=== PATIENT | male | born 1950 | race Caucasian/White ===

== ENCOUNTER 2025-01-04 12:05 | Inpatient (IN) | payer MEDICARE, BC ==
[~2025-01-04] VITALS: Ht 188 cm; Wt 119.8 kg
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
[2025-01-04 14:02] LABS: BASOPHILS % (AUTO) 0.5 % (0-1); EOSINOPHILS # (AUTO) 0.2 X10'3 (0-0.9); EOSINOPHILS % (AUTO) 2.5 % (0-6); HEMATOCRIT 44.7 % (42.0-52.0); LYMPHOCYTES # (AUTO) 1.2 X10'3 (1.1-4.8); LYMPHOCYTES % (AUTO) 18.8 % (21-51); MEAN CORPUSCULAR HGB CONC 33.5 g/dL (33.0-36.5); MEAN CORPUSCULAR VOLUME 86.5 FL (78-98); MEAN PLATELET VOLUME 8.8 FL (7.4-10.4); MONOCYTES # (AUTO) 0.5 X10'3 (0-0.9); MONOCYTES % (AUTO) 7.2 % (2-12); NEUTROPHILS # (AUTO) 4.6 X10'3 (1.8-7.7); PLATELET COUNT 184 X10'3 (140-440); RED BLOOD COUNT 5.17 X10'6 (4.70-6.10); RED CELL DISTRIBUTION WIDTH 14.9 % (11.5-14.5); WHITE BLOOD COUNT 6.5 X10'3 (4.5-11.0)
[2025-01-04] MEDS: normal saline 1000ml 1,000 ML IV ONE (14:15)
[2025-01-04 14:16] LABS: ALANINE AMINOTRANSFERASE 18 U/L (12-78); ALBUMIN 3.5 G/DL (3.4-5.0); ALBUMIN/GLOBULIN RATIO 0.9 (1.1-1.5); ALKALINE PHOSPHATASE 69 IU/L (46-116); ANION GAP 9 (8-16); ASPARTATE AMINO TRANSFERASE 19 U/L (10-37); BILIRUBIN,TOTAL 0.5 MG/DL (0.1-1.0); BLOOD UREA NITROGEN 18 MG/DL (7-18); BUN/CREATININE RATIO 16.4 (10.0-20.0); CALCIUM 8.8 MG/DL (8.5-10.1); CHLORIDE 103 MMOL/L (99-107); GLUCOSE 110 MG/DL (70-104); POTASSIUM 4.4 MMOL/L (3.5-5.1); SODIUM 139 MMOL/L (135-145); TOTAL CARBON DIOXIDE 27.4 MMOL/L (24-32); TOTAL PROTEIN 7.4 G/DL (6.4-8.2); eCRCL 65 ML/MIN; eGFR 65 ML/MIN
[2025-01-04] MEDS: ketorolac trometh 15mg/ml vial 15 MG/ML ML IV ONE (15:02)
[2025-01-04 15:35] LABS: BILIRUBIN,URINE NEGATIVE (Neg); CLARITY,URINE CLEAR (Clear); COLOR,URINE YELLOW (Yellow); GLUCOSE, URINE NEGATIVE (Neg); KETONES,URINE 15 mg/dl (Neg); LEUKOCYTE ESTERASE ,URINE NEGATIVE (Neg); NITRITES, URINE NEGATIVE (Neg); OCCULT BLOOD,URINE NEGATIVE (Neg); PH,URINE 6.5 (4.8-8.0); PROTEIN,URINE NEGATIVE (Neg); UROBILINOGEN,URINE 0.2 E.U/dL (0.2-1.0)
[2025-01-04 15:38] LABS: UA COLLECTION TYPE STRAIGHT CATH
[2025-01-04] MEDS: ondansetron/PF 4mg/2ml inj IV ONE (16:18)
[2025-01-04] MEDS: HYDROmorphone 1 mg/ml syringe IV ONE (16:19)
--- NOTE | 2025-01-04 17:27 | RADIOLOGY REPORT ---
EXAM: CT CT LUMBAR SPINE INDICATION: Pain, s/p trauma COMPARISON: None TECHNIQUE: Multiple axial CT images of the lumbar spine were obtained using bone algorithm. Axial an d coronal reformatting was done. Bone and soft tissue windows were reviewed. Radiation Dose Information: CT Dose: CTDI volume is 34.79 mGy. Dose-length product is 1187.42 mGy*cm FINDINGS: 5 [id number] lumbar-type vertebrae. Mild levoconvex curvature of the lumbar spine. Postsurgical changes of anterior spinal fusion of L3 L4 through L5-S1. Left lateral spinal fusion L2 and L3. Poste rior spinal fusion of L2 through S1 with no screws within the S4 vertebral body. Intervertebral disc spacer from L2-L3 to L5-S1. Fusion of the vertebral bodies of L1 and L2. Moderate to severe degenera tive changes of the lower thoracic spine. Limited evaluation of the spinal canal and neural foramina due to artifact spinal fixation hardware. Artifact from hardware limits evaluation of the lumbar spine for fractures. Diffuse demineralization is noted. Partially imaged 8 mm sclerotic focus of the left posterior vertebral body of T9. Addition al 6 mm Sclerotic foci are noted over The left pelvic bone. Blastic lesions within the differential. Bibasilar atelectasis. IMPRESSION: Postsurgical changes of the lumbar spine from L2-S1 as detailed above with fusion of L1 and L2. Artif act from hardware limits evaluation of the adjacent structures with no grossly displaced fractures no jose a.
[2025-01-04] MEDS ORDERED: potassium Cl 20 mEq SR tablet PO PRN ×2 (17:30)
[2025-01-04] MEDS ORDERED: acetaminophen 325mg tablet PO PRN ×2 (17:30)
[2025-01-04] MEDS ORDERED: HYDROcodone/acetaminophen 5mg/325mg tablet PO PRN (17:30)
[2025-01-04] MEDS ORDERED: ondansetron/PF 4mg/2ml inj IV PRN (17:30)
[2025-01-04] MEDS ORDERED: HYDROcodone/acetaminophen 10/325mg tab PO PRN (17:30)
[2025-01-04] MEDS ORDERED: magnesium sulf-water 4G/100mL 100 ML IV PRN (17:30)
[2025-01-04] MEDS ORDERED: magnesium sulf-water 2g/50mL 50 ML IV PRN (17:30)
[2025-01-04] MEDS ORDERED: magnesium Cl slow-release 64mg tablet PO PRN (17:30)
[2025-01-04] MEDS ORDERED: morphine 2 MG/ML inj. syringe IV PRN ×2 (17:30)
[2025-01-04] MEDS ORDERED: potassium Cl 40MEQ/1/2NS 520ml 520 ML IV PRN (17:30)
[2025-01-04] MEDS ORDERED: iohexol 300mg/ml 100ml inj. ONE (18:00)
[2025-01-04] MEDS ORDERED: HYDROmorphone inj. 0.5 MG/0.5 ML DISP.SYRIN IV PRN (18:15)
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
--- NOTE | 2025-01-04 18:41 | RADIOLOGY REPORT ---
Indication: Bilateral shoulder pain Technique: 2 views right shoulder Comparison: None FINDINGS/IMPRESSION: Cortical irregularity of the right humeral head / neck junction. Correlate with point tenderness to exclude fracture Moderate right AC joint arthrosis. Moderate to severe right glenohumeral joint arthr osis. Narrowing of the subacromial interval measuring 5 mm consistent with impingement. Pulmonary patchy airspace opacities and vasculature congestion.
--- NOTE | 2025-01-04 18:41 | RADIOLOGY REPORT ---
Indication: BILAT SHOULDER PAIN Technique: 2 views of the left shoulder Comparison: None FINDINGS/IMPRESSION: No radiographic evidence for acute fracture or dislocation. There are moderate degenerative changes of the left glenohumeral joint. Moderate left AC joint arthrosis. Pulmonary vascular congestion/ patchy pulmonary airspace opacities bilaterally.
--- NOTE | 2025-01-04 19:30 | RADIOLOGY REPORT ---
CT CT HEAD INDICATION: weakness, intractable pain COMPARISON: None TECHNIQUE: CT of the head without intravenous contrast. RADIATION DOSE: CTDIvol: 68 mGy, DLP: 1410 mGy*cm FINDINGS: There is mild streak artifact. There is no evidence of acute intracranial hemorrhage, extra-axial collection, mass effect, midline s hift, herniation or hydrocephalus. The ventricles, sulci and cisterns are commensurate in size with a mild degree of cerebral volume los s. The liao-white differentiation is intact. The visualized paranasal sinuses and mastoid air cells are clear. The surrounding soft tissues and osseous structures are unremarkable. Small bilateral tonsilliths. IMPRESSION: No evidence of acute intracranial abnormalities.
--- NOTE | 2025-01-04 19:39 | RADIOLOGY REPORT ---
EXAM: CT CT CERVICAL SPINE HISTORY: Neck pain COMPARISON: None CTDIvol 27.5 mGy, DLP 509 mGy*cm. TECHNIQUE: Multiple axial CT images of the spine were obtained using bone algorithm. Axial and coron al reformatting was done. Bone and soft tissue windows were reviewed. FINDINGS: Trace retrolisthesis C3/C4. Vertebral body heights are maintained. No evidence of acute fracture. Moderate multilevel degenerative disc changes from C3 through T1. Multilevel facet and uncovertebral arthropathy. Mild multilevel spinal canal narrowing which is greatest at C3-C4 secondary to disc osteophyte comple x. Moderate to severe bilateral neural foraminal narrowing at C3-C4 and C4-C5. Mild left and moderate ri ght neural foraminal narrowing at C5-C6. Paravertebral soft tissues are grossly unremarkable. Small bilateral tonsilliths. Thyroid is unremark able IMPRESSION: 1. No evidence of acute abnormalities in the cervical spine. 2. Moderate multilevel degenerative disc changes. Mild spinal canal narrowing at C3-C4. 3. Moderate to severe bilateral neural foraminal narrowing at C3-C4 and C4-C5.
--- NOTE | 2025-01-04 19:53 | RADIOLOGY REPORT ---
EXAM: CT CT THORACIC SPINE HISTORY: Thoracic spine pain COMPARISON: None CTDIvol 28 mGy, DLP 1106 mGy*cm. TECHNIQUE: Multiple axial CT images of the spine were obtained using bone algorithm. Axial and coron al reformatting was done. Bone and soft tissue windows were reviewed. FINDINGS: There are small rib lets at L1. Thoracic dextrocurvature. Mild exaggeration of the thoracic kyphosis. Minimal anterolisthesis T12/L1. Vertebral body heights are maintained. No evidence of acute fracture. Small bone islands in the T11 v ertebral body and the right 9th posterior rib. Moderate multilevel degenerative disc changes throughout the thoracic spine. Minimal disc osteophyte complex at T10-T11 and T11-T12. No evidence of high-grade osseous spinal alex nosis. Moderate bilateral neural foraminal narrowing at T10-T11, and T11-T12. Otherwise there is mild multilevel neural foraminal narrowing. Paravertebral musculature is unremarkable. Mild coronary artery calcification. Bibasilar dependent at electasis. A couple of subcentimeter calcified lung nodules are seen which are commonly due to old g ranulomatous disease. IMPRESSION: 1. No evidence of acute abnormalities in the thoracic spine. 2. Moderate multilevel degenerative disc changes throughout the thoracic spine. No evidence of high-g rade osseous spinal stenosis. 3. Moderate neural foraminal narrowing bilaterally T10-T11 and T11-T12.
[2025-01-04] MEDS: normal saline 1000ml 1,000 ML IV SCH (20:05)
[2025-01-04] MEDS: heparin, porcine 5000 units/ml vial SQ SCH (20:06)
[2025-01-04] MEDS: HYDROmorphone 1 mg/ml syringe IV PRN (20:08)
--- NOTE | 2025-01-04 20:12 | RADIOLOGY REPORT ---
Exam: CT CT CHEST ABDOMEN PELVIS W/ IV CONTRAST History: weakness, intractable pain Comparison Study: None Technique: Multidetector spiral CT of the chest, abdomen and pelvis was performed from lower neck to pubic symphysis. Intravenous contrast was administered during this examination. Portal venous imagi ng was obtained. Axial, coronal and sagittal multiplanar reformats were performed by the technologist on a separate workstation. Radiation Dose : 1. Chest/Abdomen/Pelvis: CTDIvol 50.4 mGy, DLP 2430 mGy*cm. Contrast: 100 mL omni 300 Findings: Streak artifact in the pelvis related to the spinal hardware. Lower neck: Normal thyroid. Lungs: Mild bibasilar atelectasis/scarring. There is mild bronchiectasis in the bilateral lower lobes , sylex-[id number]-bezm-left. A couple of subcentimeter calcified lung nodules are commonly due to old g ranulomatous disease. Heart/Vascular Structures: Normal heart size. No pericardial effusion. Mild tortuosity in the thoraci c aorta. No evidence of aneurysm or dissection. Lymph Nodes: No adenopathy Pleura: No pleural effusion or significant pneumothorax. Liver: The liver is normal in size. No focal lesions. Normal hepatic vascular enhancement. Gallbladder and Biliary Tree: Unremarkable Spleen: Unremarkable Pancreas: The pancreas is normal in appearance without focal lesions or abnormal enhancement. Adrenal Glands: Unremarkable Kidneys: Kidneys are symmetric. No evidence of hydronephrosis or renal calculi. Few small cortical an d peripelvic renal cysts. Bladder: Unremarkable Bowel: Moderate size hiatal hernia. Stomach is otherwise unremarkable. Small bowel and colon are nor mal in caliber and distribution. Stool density is noted in the terminal ileum. The appendix is not vi sualized; however, no secondary findings of acute appendicitis identified. Ascites: Absent Lymphadenopathy: No mesenteric, retroperitoneal or periportal lymphadenopathy. Abdominal Wall: Moderate size fat containing left inguinal hernia. Small fat containing right inguina l hernia. Rectus diastasis. Mesentery: Question minimal fat stranding in the mid abdominal mesentery (series 3, image 64). Vasculature: The visualized abdominal aorta is normal in size and caliber. Abdominal and pelvic vess els demonstrate normal enhancement. Pelvic Organs: Unremarkable Musculoskeletal: Thoracic and lumbar spine are separately reported. Partially visualized degenerative changes of the shoulders. The visualized bony structures are otherwise grossly unremarkable. IMPRESSION: 1. Mild bibasilar atelectasis/ scarring. There is also mild bronchiectasis in the lower lobes, right- [id number]-ypqi-iubk. 2. Question minimal fat stranding in the mid abdominal mesentery. This could be secondary to streak artifact from the spinal hardware or mesenteric panniculitis. 3. Moderate size hiatal hernia. 4. Fat containing inguinal hernias, gqwb-[id number]-iosi-right.
[2025-01-04] MEDS ORDERED: NO HOME MEDS (20:14)
[2025-01-04 22:00] VITALS: BP 105/61; PULSE 66; RESP 16; TEMP 97.6; O2SAT 93
[2025-01-04 23:10] VITALS: BP 123/63
[2025-01-05 02:58] VITALS: O2SAT 93
[2025-01-05 06:00] VITALS: BP 124/58; PULSE 56; RESP 16; TEMP 98; O2SAT 95
[2025-01-05 06:07] LABS: BASOPHILS % (AUTO) 0.5 % (0-1); EOSINOPHILS # (AUTO) 0.1 X10'3 (0-0.9); EOSINOPHILS % (AUTO) 1.8 % (0-6); HEMOGLOBIN 14.3 g/dl (14.0-17.9); LYMPHOCYTES # (AUTO) 0.9 X10'3 (1.1-4.8); LYMPHOCYTES % (AUTO) 11.7 % (21-51); MEAN CORPUSCULAR HEMOGLOBIN 29.4 PG (27.0-31.0); MEAN CORPUSCULAR HGB CONC 34.1 g/dL (33.0-36.5); MEAN CORPUSCULAR VOLUME 86.1 FL (78-98); MEAN PLATELET VOLUME 9.5 FL (7.4-10.4); MONOCYTES # (AUTO) 0.5 X10'3 (0-0.9); MONOCYTES % (AUTO) 6.2 % (2-12); NEUTROPHILS # (AUTO) 5.8 X10'3 (1.8-7.7); NEUTROPHILS % (AUTO) 79.8 % (42-75); PLATELET COUNT 178 X10'3 (140-440); RED BLOOD COUNT 4.88 X10'6 (4.70-6.10); WHITE BLOOD COUNT 7.3 X10'3 (4.5-11.0)
[2025-01-05 06:16] LABS: ALBUMIN 3.2 G/DL (3.4-5.0); ANION GAP 8 (8-16); BLOOD UREA NITROGEN 16 MG/DL (7-18); BUN/CREATININE RATIO 16.7 (10.0-20.0); CALCIUM 8.3 MG/DL (8.5-10.1); CHLORIDE 104 MMOL/L (99-107); CREATININE 0.96 MG/DL (0.60-1.10); GLUCOSE 93 MG/DL (70-104); SODIUM 141 MMOL/L (135-145); TOTAL CARBON DIOXIDE 28.7 MMOL/L (24-32); eCRCL 78 ML/MIN; eGFR 77 ML/MIN
[2025-01-05 06:25] LABS: POTASSIUM 4.1 MMOL/L (3.5-5.1)
--- NOTE | 2025-01-05 07:43 | ELECTROCARDIOGRAPH REPORT ---
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
[2025-01-05 08:00] VITALS: O2SAT 94
[2025-01-05 11:00] VITALS: BP 116/56; PULSE 74; RESP 19; TEMP 97.6; O2SAT 95
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
[2025-01-05 18:00] VITALS: BP 106/52; PULSE 73; RESP 19; TEMP 97.9; O2SAT 94
[2025-01-05 22:00] VITALS: BP 147/79; PULSE 59; RESP 16; TEMP 98.3; O2SAT 96
[2025-01-06 04:26] LABS: BASOPHILS % (AUTO) 0.5 % (0-1); EOSINOPHILS # (AUTO) 0.2 X10'3 (0-0.9); EOSINOPHILS % (AUTO) 2.5 % (0-6); HEMATOCRIT 41.5 % (42.0-52.0); HEMOGLOBIN 14.1 g/dl (14.0-17.9); LYMPHOCYTES % (AUTO) 14.4 % (21-51); MEAN CORPUSCULAR HEMOGLOBIN 29.1 PG (27.0-31.0); MEAN CORPUSCULAR VOLUME 85.6 FL (78-98); MEAN PLATELET VOLUME 8.5 FL (7.4-10.4); MONOCYTES # (AUTO) 0.5 X10'3 (0-0.9); MONOCYTES % (AUTO) 7.1 % (2-12); NEUTROPHILS # (AUTO) 5.2 X10'3 (1.8-7.7); NEUTROPHILS % (AUTO) 75.5 % (42-75); PLATELET COUNT 168 X10'3 (140-440); RED BLOOD COUNT 4.84 X10'6 (4.70-6.10); RED CELL DISTRIBUTION WIDTH 14.5 % (11.5-14.5); WHITE BLOOD COUNT 6.9 X10'3 (4.5-11.0)
[2025-01-06 04:41] LABS: ANION GAP 5 (8-16); BLOOD UREA NITROGEN 12 MG/DL (7-18); BUN/CREATININE RATIO 12.4 (10.0-20.0); CALCIUM 8.3 MG/DL (8.5-10.1); CHLORIDE 102 MMOL/L (99-107); CREATININE 0.97 MG/DL (0.60-1.10); GLUCOSE 103 MG/DL (70-104); POTASSIUM 3.8 MMOL/L (3.5-5.1); SODIUM 136 MMOL/L (135-145); TOTAL CARBON DIOXIDE 29.1 MMOL/L (24-32); eCRCL 78 ML/MIN; eGFR 76 ML/MIN
[2025-01-06 05:00] VITALS: BP 137/81; PULSE 69; RESP 16; TEMP 97.7; O2SAT 96
[2025-01-06 08:00] VITALS: RESP 16; O2SAT 96
[2025-01-06] MEDS ORDERED: HYDROmorphone inj. 0.5 MG/0.5 ML DISP.SYRIN IV PRN (08:20)
[2025-01-06] MEDS: polyethylene glycol 3350 17gm powd pack PO SCH (09:04)
[2025-01-06] MEDS: bisacodyl 10mg suppository rectal RC STA (09:05)
[2025-01-06 10:00] VITALS: BP 143/72; PULSE 77; RESP 16; TEMP 98.1; O2SAT 95
[2025-01-06] MEDS: HYDROmorphone 1 mg/ml syringe IV PRN (10:14)
[2025-01-06] MEDS: baclofen 10mg tablet PO PRN (11:31)
[2025-01-06] MEDS: mineral oil 133ml enema RC ONE (16:07)
[2025-01-06 18:00] VITALS: BP 132/63; PULSE 87; RESP 20; TEMP 97.7; O2SAT 94
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
[2025-01-06] MEDS: lactulose 20gm/30ml cup PO SCH (19:19)
[2025-01-06 22:00] VITALS: BP 156/85; PULSE 80; RESP 22; TEMP 97.3; O2SAT 92
[2025-01-06] MEDS: Melatonin 3mg tablet PO ONE ×2 (22:57→23:02)
[2025-01-07 04:20] LABS: BASOPHILS % (AUTO) 0.3 % (0-1); EOSINOPHILS # (AUTO) 0.2 X10'3 (0-0.9); EOSINOPHILS % (AUTO) 2.4 % (0-6); HEMATOCRIT 42.9 % (42.0-52.0); HEMOGLOBIN 14.4 g/dl (14.0-17.9); LYMPHOCYTES # (AUTO) 0.8 X10'3 (1.1-4.8); LYMPHOCYTES % (AUTO) 9.9 % (21-51); MEAN CORPUSCULAR HEMOGLOBIN 29.1 PG (27.0-31.0); MEAN CORPUSCULAR HGB CONC 33.6 g/dL (33.0-36.5); MEAN CORPUSCULAR VOLUME 86.4 FL (78-98); MEAN PLATELET VOLUME 8.4 FL (7.4-10.4); MONOCYTES # (AUTO) 0.6 X10'3 (0-0.9); MONOCYTES % (AUTO) 7.5 % (2-12); NEUTROPHILS # (AUTO) 6.3 X10'3 (1.8-7.7); NEUTROPHILS % (AUTO) 79.9 % (42-75); PLATELET COUNT 184 X10'3 (140-440); RED BLOOD COUNT 4.96 X10'6 (4.70-6.10); RED CELL DISTRIBUTION WIDTH 14.5 % (11.5-14.5); WHITE BLOOD COUNT 7.8 X10'3 (4.5-11.0)
[2025-01-07 04:39] LABS: ANION GAP 8 (8-16); BLOOD UREA NITROGEN 11 MG/DL (7-18); BUN/CREATININE RATIO 11.6 (10.0-20.0); CALCIUM 8.9 MG/DL (8.5-10.1); CHLORIDE 105 MMOL/L (99-107); CREATININE 0.95 MG/DL (0.60-1.10); GLUCOSE 115 MG/DL (70-104); POTASSIUM 4.1 MMOL/L (3.5-5.1); SODIUM 142 MMOL/L (135-145); TOTAL CARBON DIOXIDE 28.8 MMOL/L (24-32); eCRCL 79 ML/MIN; eGFR 77 ML/MIN
[2025-01-07] MEDS: LORazepam 1 MG tablet PO ONE (05:14)
[2025-01-07 06:00] VITALS: BP 137/81; PULSE 69; RESP 16; TEMP 98; O2SAT 96
[2025-01-07 08:00] VITALS: BP 128/75; PULSE 80
[2025-01-07] MEDS: lactulose 20gm/30ml cup PO SCH (08:55)
[2025-01-07] MEDS: bisacodyl 10mg suppository rectal RC PRN (08:55)
[2025-01-07 10:00] VITALS: BP 113/69; PULSE 70; RESP 16; TEMP 98; O2SAT 95
--- NOTE | 2025-01-07 10:37 | RADIOLOGY REPORT ---
Exam: DI ABDOMEN,SINGLE VIEW(KUB) Indication: severe constipation Comparison: None Technique: 2 radiographic views of the abdomen. Findings: Moderate colonic stool. Nonobstructive bowel gas pattern noted. There is no definite evidence for pneumoperitoneum. No abnormal calcifications noted. Impression: Nonobstructive bowel gas pattern noted. Moderate colonic stool.
[2025-01-07 13:21] VITALS: RESP 18
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
== END 2025-01-07 13:30 | DRG 552 ==
LOC: ER 12:06 → ED HOLD 17:35 → SUR 3N 21:36
PROVIDERS: ADMIT Internal Medicine; ATTEND Internal Medicine
PROC: BW251ZZ Computerized Tomography (CT Scan) of Chest, Abdomen and Pelvis using Low Osmolar Contrast (ICD-10-PCS; principal; 2025-01-04)
DX: M47.816 Spondylosis without myelopathy or radiculopathy, lumbar region (principal); M47.814 Spondylosis without myelopathy or radiculopathy, thoracic region; G47.33 Obstructive sleep apnea (adult) (pediatric); Z66 Do not resuscitate; K59.00 Constipation, unspecified; Z88.0 Allergy status to penicillin; Z90.49 Acquired absence of other specified parts of digestive tract
CPT/HCPCS: 36415; 70450; 70490; 71260; 72128; 72131; 73030; 74018; 74177; 80048; 80053; 81003; 83605; 84145; 85025; 85651; 87040; 87077; 87081; 87186; 93005; 96361; 96372; 96374; 96375; 97110; 97161; 97530; 97535; 99285; A6213; A6250; A6590; C1758; G0378; J1171; J1644; J1885; J2405; J7030; Q9967